=== PATIENT | female | born 1950 | race Caucasian/White ===

== ENCOUNTER → 2016-09-15 | Outpatient (CLI) | payer OTHER ==
[~2016-09-15] MED LIST: ASTRPOW4; CHOL50006; CO Q100C9; CURCPOW; ENZYCAP; GARL10CA2; GRAP100C; HAWTCAP; HYZA100T4 PO; KELP150T; LACTCAP8 PO; LANTUS2P; LANTUSP SQ; LOSA50TA2 PO; MELAPOW2; MSM500CA PO; NOVOLOGP2 SQ; NOVOLOGSS; NOVORP2 SQ; OMEGCAP; OXYC1TAB63 PO; [UNRECOGNIZED DRUG - CODE]
--- NOTE | 2016-09-15 14:37 | RADRPT ---
EXAM DATE/TIME: 09/15/2016 00:00 This report includes an Addendum and supersedes previous reports for this exam. [facility] COMPARISON: No previous studies available for comparison. OUTSIDE STUDY REVIEWED: INDICATIONS : CT guided left renal biopsy and cryoablation FINDINGS: Reviewed patient's outside CT. Definite renal mass in the lower pole with a questionable mass in the upper pole. I would recommend MRI with and without gadolinium to further evaluate the upper pole lesion. If this turns out to be a benign, complicated cyst, I would proceed with cryoablation of the lower pole. However, if the upper pole lesion also appears malignant, would consider nephrectomy. RECOMMENDATION: MRI with and without gadolinium to evaluate upper pole lesion in the right kidney. Ap Whitfield MD on September 15, 2016 at 14:33 Board Certified Radiologist. This report was verified electronically. ADDENDUM: Please note under "recommendations", the statement refers to the left kidney as stated in the body of the findings. Ap Whitfield MD on September 22, 2016 at 9:44 Board Certified Radiologist. This report was verified electronically.
== END ==
LOC: HRAD 13:01
PROVIDERS: ATTEND Urology
DX: N28.89 Other specified disorders of kidney and ureter (principal)
CPT/HCPCS: 76140

== ENCOUNTER 2016-10-17 10:02 | Observation (INO) | payer OTHER ==
[~2016-10-17] VITALS: Ht 157.5 cm; Wt 80.0 kg
[~2016-10-17 10:02] MED LIST changes: -ASTRPOW4; -CHOL50006; -CO Q100C9; -CURCPOW; -ENZYCAP; -GARL10CA2; -GRAP100C; -HAWTCAP; -KELP150T; -LACTCAP8 PO; -LANTUS2P; -LOSA50TA2 PO; -MELAPOW2; -MSM500CA PO; -NOVOLOGP2 SQ; -NOVOLOGSS; -OMEGCAP; -OXYC1TAB63 PO; -[UNRECOGNIZED DRUG - CODE]
[2016-10-17 10:31] VITALS: BP 158/82; PULSE 59; RESP 20; TEMP 98.5; O2SAT 94
[2016-10-17] MEDS ORDERED: LOSA50TA2 PO (10:42)
[2016-10-17] MEDS ORDERED: LANTUS2P (10:46)
[2016-10-17] MEDS ORDERED: NOVOLOGSS (10:46)
[2016-10-17] MEDS ORDERED: NOVOLOGP2 SQ (10:46)
[2016-10-17] MEDS ORDERED: HAWTCAP (11:02)
[2016-10-17] MEDS ORDERED: OMEGCAP (11:02)
[2016-10-17] MEDS ORDERED: MSM500CA PO (11:02)
[2016-10-17] MEDS ORDERED: ASTRPOW4 (11:02)
[2016-10-17] MEDS ORDERED: ENZYCAP (11:02)
[2016-10-17] MEDS ORDERED: MELAPOW2 (11:02)
[2016-10-17] MEDS ORDERED: GARL10CA2 (11:02)
[2016-10-17] MEDS ORDERED: LACTCAP8 PO (11:02)
[2016-10-17] MEDS ORDERED: KELP150T (11:02)
[2016-10-17] MEDS ORDERED: CHOL50006 (11:02)
[2016-10-17] MEDS ORDERED: GRAP100C (11:02)
[2016-10-17] MEDS ORDERED: CURCPOW (11:02)
[2016-10-17] MEDS ORDERED: [UNRECOGNIZED DRUG - CODE] (11:02)
[2016-10-17] MEDS ORDERED: CO Q100C9 (11:02)
[2016-10-17] MEDS ORDERED: POVIDONE IODINE 5% (ANTISEPSIS KIT) 4 APPLICATIONS EACH NARE PRN (11:15)
[2016-10-17] MEDS ORDERED: INSULIN HUMAN REGULAR 1,000 UNITS/10 ML VIAL SQ PRN (11:15)
[2016-10-17] MEDS ORDERED: SODIUM CHLORID 0.9% 500 ML IV PRN (11:15)
[2016-10-17] MEDS ORDERED: CHLORHEXIDINE GLUCONATE 2 % 1 PACK (2 CLOTHS) TOPICAL PRN (11:15)
[2016-10-17] MEDS ORDERED: SODIUM CHLOR 0.9% 1000 ML INJ 1,000 ML IV SCH (11:15)
[2016-10-17] MEDS ORDERED: LACTATED RINGER'S 1000 ML IV PRN (11:15)
[2016-10-17] MEDS ORDERED: LEVOFLOXACIN 500 MG PREMIX INJ 100 ML IV SCH (11:15)
[2016-10-17] MEDS ORDERED: METOPROLOL TARTRATE 25 MG TAB PO PRN (11:15)
[2016-10-17 11:51] LABS: BICARBONATE 26.9 MEQ/L (21.0-32.0); POTASSIUM 4.3 MEQ/L (3.5-5.1)
[2016-10-17] MEDS ORDERED: LIDOCAINE 1%/EPINEPHrine 1:100,000 SOLN 20 ML VIAL ONE (12:48)
[2016-10-17] MEDS ORDERED: DO NOT ADM ANY ANTICOAGULANT DRUGS PRN (17:08)
--- NOTE | 2016-10-17 17:11 | PD.RAD ---
Post CT Procedure Prog Note Pre Procedure Diagnosis: (1) Renal mass, right Post Procedure Diagnosis: (1) Renal mass, right Procedure Date: Oct 17, 2016 Supervising Radiologist: Ap Whitfield Proceduralist/Assist: RT Neli(R)(CT) Anesthesia: General Plan of Activity Patient to Unit: PACU Patient Condition: Good See PACS Report for procedural detail/treatment Biopsy Imaging Guidance: CT Side: Right Biopsy Procedure: Kidney Specimen: Core Biopsy Findings: 3.3 cm mass post 3 needle cryo. Ap Whitfield MD Oct 17, 2016 17:11
[2016-10-17] MEDS ORDERED: oxyCODONE/ACETAMINOPHEN 5 MG/325 MG TAB PO PRN (17:15)
[2016-10-17] MEDS ORDERED: LABETALOL HCL 100 MG/20 ML VIAL ONE (17:18)
[2016-10-17] MEDS ORDERED: fentaNYL CITRATE 250 MCG/5 ML AMP ONE (17:26)
[2016-10-17] MEDS ORDERED: *ONDANSETRON 4 MG VIAL PERIprocedural Use ONLY ONE (17:30)
[2016-10-17] MEDS ORDERED: *ENALAPRILAT 1.25 MG/ML VIAL PERIprocedural Use ONLY ONE (17:32)
[2016-10-17] MEDS ORDERED: PROMETHAZINE HCL 25 MG SUPP RECTAL ONE ×2 (17:42→19:00)
--- NOTE | 2016-10-17 18:11 | PD.CONS ---
HPI Service [facility] Consult Requested By Dr. Whitfield Reason for Consult medical management Primary Care Physician Jaren Jenkins MD Diagnoses: History of Present Illness 66-year-old female past medical history type 2 diabetes insulin-dependent, coronary disease, hypertension, and recent discovery of a right renal mass who presented for renal biopsy and cryoablation today by radiologist. [facility] consulted for medical management. Patient seen to [facility] and the PACU. Patient complaining of abdominal discomfort and nausea/vomiting. Patient had an episode emesis during the interview which was yellow in color. Blood pressure was also elevated with a systolic blood pressure 190s. Patient stated that she only takes a half a tablet of her blood pressure which she took today. Otherwise she has no other complaints. Review of Systems Constitutional: DENIES: Diaphoretic episodes, Fatigue, Fever, Weight gain, Weight loss, Chills, Dizziness, Change in appetite, Night Sweats Endocrine: DENIES: Abnorml menstrual pattern, Heat/cold intolerance, Polydipsia , Polyuria, Polyphagia Eyes: DENIES: Blurred vision, Diplopia, Eye inflammation, Eye pain, Vision loss , Photosensitivity, Double Vision Ears, nose, mouth, throat: DENIES: Tinnitus, Hearing loss, Vertigo, Nasal discharge, Oral lesions, Throat pain, Hoarseness, Ear Pain, Running Nose, Epistaxis, Sinus Pain, Toothache, Odynophagia Respiratory: DENIES: Apneas, Cough, Snoring, Wheezing, Hemoptysis, Sputum production, Shortness of breath Cardiovascular: DENIES: Chest pain, Palpitations, Syncope, Dyspnea on Exertion , PND, Lower Extremity Edema, Orthopnea, Claudication Gastrointestinal: COMPLAINS OF: Abdominal pain, Nausea, Vomiting, DENIES: Black stools, Bloody stools, Constipation, Diarrhea, Difficulty Swallowing, Anorexia Genitourinary: DENIES: Abnormal vaginal bleeding, Dysmenorrhea, Dyspareunia, Sexual dysfunction, Urinary frequency, Urinary incontinence, Urgency, Hematuria , Dysuria, Nocturia, Vaginal discharge Musculoskeletal: DENIES: Joint pain, Muscle aches, Stiffness, Joint Swelling, Back pain, Neck pain Integumentary: DENIES: Abnormal pigmentation, Pruritus, Rash, Nail changes, Breast masses, Breast skin changes, Nipple discharge Hematologic/lymphatic: DENIES: Bruising, Lymphadenopathy Immunologic/allergic: DENIES: Eczema, Urticaria Neurologic: DENIES: Abnormal gait, Headache, Localized weakness, Paresthesias, Seizures, Speech Problems, Tremor, Poor Balance Psychiatric: DENIES: Anxiety, Confusion, Mood changes, Depression, Hallucinations, Agitation, Suicidal Ideation, Homicidal Ideation, Delusions Past Family Social History Allergies: Coded Allergies: Darvon (Verified Allergy, Mild, NIGHTMARES, 10/04/10) Keflex (Verified Allergy, Mild, RASH, 10/04/10) Past Medical History Osteoarthritis, type 2 diabetes insulin-dependent, coronary disease, hypertension Past Surgical History Cholecystectomy, hysterectomy with oophorectomy, bladder neck suspension Reported Medications Reported Meds & Active Scripts Active Reported Astragalus Root (Tragacanth) 1 Pow Pow Melatonin (Melatonin (Bulk)) 1 Pow Pow Vitamin D (Cholecalciferol) 5,000 Unit Tab Cardio [place] Benefits/Vit 667-250 mg-Unit ([place]-3 Fatty Acids-Cholecalci) 1 Cap Cap Garlic 10 Mg Cap Immune Enhance (Nutritional Supplements) 1 Tab Tab Kelp (Iodine (Kelp)) 150 Mcg Tab Enzyme Digest (Digestive Enzymes) 1 Cap Cap TID [place] ([place]) 550 Mg Cap Grape Seed Extract (Grape Seed) 100 Mg Cap Curcumin (Turmeric (Curcuma Longa) (Bulk) 1 Pow Pow Msm (Methylsulfonylmethane) 500 Mg Cap 500 Mg PO BID Probiotic (Lactobacillus Acidophilus) 1 Cap Cap 2 Cap PO DAILY Co Q 10 (Coenzyme Q10 (Ubidecarenone)) 100 Mg Cap Novolog Inj (Insulin Aspart) 1,000 Unit/10 Ml Vial 0 SQ DIRECTED Sliding Scale as directed. Novolog Inj (Insulin Aspart) 100 Unit/Ml Inj Lantus Inj (Insulin Glargine) 100 Unit/Ml Inj 35 Losartan-Hydrochlorothiazide 50-12.5 Mg Tab 0.5 Tab PO DAILY Active Ordered Medications Current Medications Lactated Ringer's 1,000 ml @ 30 mls/hr Q24H PRN IV SEE LABEL COMMENTS; Start at 11:15; Stop 10/20/16 at 11:14 Sodium Chloride (NS 500 ml Inj) 500 ml @ 30 mls/hr [id number] PRN IV SEE LABEL COMMENTS; Start 10/17/16 at 11:15; Stop 10/20/16 at 11:14 Metoprolol Tartrate (Lopressor) 25 mg ROLLER LEVELER OPERATOR PRN PO SEE LABEL COMMENTS; Start 10/17/16 at 11:15; Stop 10/20/16 at 11:14 Povidone Iodine (Betadine 5% Antisepsis Kit) 1 applic ROLLER LEVELER OPERATOR PRN EACH NARE SEE LABEL COMMENTS; Start 10/17/16 at 11:15; Stop 10/20/16 at 11:14 Chlorhexidine Gluconate (Chlorhexidine 2% Cloth) 3 pack ROLLER LEVELER OPERATOR PRN TOPICAL SEE LABEL COMMENTS; Start 10/17/16 at 11:15; Stop 10/20/16 at 11:14 Insulin Human Regular See Protocol Table ... ROLLER LEVELER OPERATOR PRN SQ SEE PROTOCOL TABLE ; Start 10/17/16 at 11:15; Stop 10/20/16 at 11:14 Sodium Chloride 1,000 ml @ 30 mls/hr Q24H IV ; Start 10/17/16 at 11:15; Stop at 11:14 Levofloxacin/ Dextrose (Levaquin 500 Mg Premix Inj) 100 ml @ 100 mls/hr ROLLER LEVELER OPERATOR IV ; Start 10/17/16 at 11:15; Stop 10/20/16 at 11:14 Lidocaine/ Epinephrine (Xylocaine-Epi 1%-1:100,000 Inj) 20 ml STK-MED ONCE .ROUTE ; Start 10/17/16 at 12:48; Stop 10/17/16 at 12:49; Status DC Oxycodone/ Acetaminophen (Percocet 5-325 Mg) 1 tab Q4H PRN PO PAIN SCALE 1 TO 10; Start 10/17/16 at 17:15 Labetalol HCl (Trandate Inj) 100 mg STK-MED ONCE .ROUTE ; Start 10/17/16 at 17: 18; Stop 10/17/16 at 17:19; Status DC Fentanyl Citrate (fentaNYL INJ) 250 mcg STK-MED ONCE .ROUTE ; Start 10/17/16 at 17:26; Stop 10/17/16 at 17:27; Status DC Ondansetron HCl (*ZOFRAN INJ PERIprocedural ONLY) 4 mg STK-MED ONCE .ROUTE Last administered on 10/17/16t 17:30; Start 10/17/16 at 17:30; Stop 10/17/16 at 17:31; Status DC Enalaprilat (*VASOTEC INJ PERIprocedural Use ONLY) 1.25 mg STK-MED ONCE .ROUTE Last administered on 10/17/16t 17:32; Start 10/17/16 at 17:32; Stop 10/17/16 at 17:33; Status DC Promethazine HCl (Phenergan Supp) 25 mg STK-MED ONCE RECTAL ; Start 10/17/16 at 17:42; Stop 10/17/16 at 17:43; Status DC Miscellaneous Information ALL NURSING DEPARTME... UNSCH PRN .XX SEE LABEL COMMENTS; Start 10/17/16 at 17:08; Stop 10/18/16 at 17:07 Promethazine HCl (Phenergan Supp) 25 mg ONCE ONCE RECTAL ; Start 10/17/16 at 19 :00; Stop 10/17/16 at 19:01 Family History Multiple family members with diabetes and coronary disease. Social History Patient was on home. Denies tobacco use or alcohol use. Physical Exam Vital Signs Vital Signs Date Time Temp Pulse Resp B/P Pulse Ox O2 Delivery O2 Flow Rate FiO2 10/17/16 11:28 94 Room Air 10/17/16 10:31 98.5 59 20 158/82 94 Physical Exam GENERAL: This is a well-nourished, well-developed patient, in no apparent distress. SKIN: No rashes, ecchymoses or lesions. Cool and dry. HEAD: Atraumatic. Normocephalic. No temporal or scalp tenderness. EYES: Pupils equal round and reactive. Extraocular motions intact. No scleral icterus. No injection or drainage. ENT: Nose without bleeding, purulent drainage or septal hematoma. Throat without erythema, tonsillar hypertrophy or exudate. Uvula midline. Airway patent. NECK: Trachea midline. No JVD or lymphadenopathy. Supple, nontender, no meningeal signs. CARDIOVASCULAR: Regular rate and rhythm without murmurs, gallops, or rubs. RESPIRATORY: Clear to auscultation. Breath sounds equal bilaterally. No wheezes , rales, or rhonchi. GASTROINTESTINAL: Abdomen soft, mild tenderness to palpation in the left lower quadrant, nondistended. No hepato-splenomegaly, or palpable masses. No guarding. hypoactive bowel sounds MUSCULOSKELETAL: Extremities without clubbing, cyanosis, or edema. No joint tenderness, effusion, or edema noted. No calf tenderness. Negative Homans sign bilaterally. NEUROLOGICAL: Awake and alert. Cranial nerves II through XII intact. Motor and sensory grossly within normal limits. Five out of 5 muscle strength in all muscle groups. Normal speech. Laboratory Laboratory Tests Test 10/17/16 11:15 Sodium Level 138 Potassium Level 4.3 Chloride Level 100 Carbon Dioxide Level 26.9 Anion Gap 11 Blood Urea Nitrogen 28 Creatinine 1.36 Estimat Glomerular Filtration 39 Rate Random Glucose 213 Calcium Level 9.6 Result Diagram: 10/17/16 1115 Assessment and Plan Assessment and Plan 66-year-old female who presented with a right renal mass Right renal mass -Status post biopsy and cryoablation by CT. -Management per CT Radiologist. -Continue to monitor clinically and for any signs of bleeding. Emesis -Most likely secondary to anesthesia. -Patient was given a dose of Zofran. Will try Phenergan. -Patient is currently on IV fluids. -Continue to monitor clinically. Uncontrolled hypertension -Most likely secondary to postsurgical. -Monitor over telemetry. -We'll give labetalol when necessary. -Restart home medication. coronary disease, type 2 diabetes -Per medical record stated that patient has coronary disease but is not on aspirin. Will continue to hold if patient is on aspirin due to increased risks of bleeding. Aspirin most likely held secondary to procedure. -Since patient does have emesis will only continue with insulin sliding scale. -Once emesis resolve we'll consider restarting her home medication. Chronic kidney disease stage III -Patient is on ARB. -Avoid nephrotoxins.. DVT prophylaxis -SCDs. Swathi Calero MD Oct 17, 2016 18:11
[2016-10-17] MEDS ORDERED: hydrALAZINE HCL 20 MG/ML VIAL IV PUSH PRN (18:30)
[2016-10-17] MEDS ORDERED: LABETALOL HCL 100 MG/20 ML VIAL IV PUSH PRN (18:30)
[2016-10-17] MEDS ORDERED: IODIXANOL 320 MG/ML 10 ML VIAL (for Rad CT) IV ONE (19:30)
[2016-10-17 21:07] VITALS: BP 151/72; PULSE 70; RESP 18; TEMP 96.1; O2SAT 97
[2016-10-17 23:49] VITALS: BP 145/70; PULSE 80; RESP 18; TEMP 97.4; O2SAT 96
[2016-10-18 07:53] VITALS: BP 140/71; PULSE 76; RESP 17; TEMP 98.1; O2SAT 96
[2016-10-18] MEDS ORDERED: OXYC1TAB63 PO (08:36)
[2016-10-18] MEDS ORDERED: LACTOBACILLUS ACIDOPHILUS TAB PO SCH (09:00)
[2016-10-18] MEDS ORDERED: LOSARTAN HYDROCHLOROTHIAZIDE PO SCH (09:00)
--- NOTE | 2016-10-18 11:16 | RADRPT ---
EXAM DATE/TIME: 10/17/2016 14:59 [facility] COMPARISON: No previous studies available for comparison. INDICATIONS : Left renal mass. CONTRAST: 50 cc Visipaque (iodixanol) BIOPSY SITE: Left renal Anesthesia and pain control was provided by the Anesthesia department. DEVICE(S): 1.) 18 gauge Temno core biopsy needle MEDICAL HISTORY : Arthritis. Cardiovascular disease. Hypertension. diabetes SURGICAL HISTORY : Hysterectomy. Cholecystectomy. Bladder neck suspension,oophorectomy ENCOUNTER: Initial ACUITY: 1 day PAIN SCORE: 0/10 LOCATION: Left renal A total of one core specimen(s) were obtained and sent to the laboratory for pathologic evaluation. S tudy was done in conjunction with cryoablation. PROCEDURE: 1. CT guided renalLeft biopsy. Prior to the procedure informed consent was obtained. Any appropriate prior imaging studies were rev iewed. Using automated exposure control and adjustment of the mA and/or kV according to patient size, radiat ion dose was kept as low as reasonably achievable to obtain optimal diagnostic quality images. The site was prepped in a sterile fashion. Full sterile technique was used, including cap, mask, brooklyn rile gloves and gown and a large sterile sheet. Hand hygiene and 2% chlorhexidine and/or betadine/al cohol prep was utilized per protocol for cutaneous antisepsis. The skin and subcutaneous tissues wer e infiltrated with local anesthetic solution. With CT guidance the previously identified target was localized. Biopsy was performed using the presc ribed needle as above. Adequate hemostasis was obtained with compression at the puncture site. Follow-up CT scan reveals no hemorrhage. The patient tolerated the procedure well and there were no complications. The patient was returned to the Radiology Outpatient Unit in stable condition. CONCLUSION: Uncomplicated CT guided biopsy. Ap Whitfield MD on October 18, 2016 at 11:12 Board Certified Radiologist. This report was verified electronically.
--- NOTE | 2016-10-18 11:18 | RADRPT ---
EXAM DATE/TIME: 10/17/2016 14:59 INDICATIONS : Left renal mass. Anesthesia and pain control was provided by the Anesthesia department. DEVICE(S): 1.) Cryoablation probe x3 MEDICAL HISTORY : Arthritis. Cardiovascular disease. Hypertension. Diabetes,kidney stone SURGICAL HISTORY : Hysterectomy. Cholecystectomy. oophorectomy,bladder neck ENCOUNTER: Initial ACUITY: 1 day PAIN SCORE: 0/10 LOCATION: left renal PROCEDURE : 1. CT guided cryoablation. Under sterile conditions and using aseptic technique with CT guidance the mass was localized and sati sfactory approach was taken to access the lesion. Using automated exposure control and adjustment of the mA and/or kV according to patient size, radiation dose was kept as low as reasonably achievable to obtain optimal diagnostic quality images. Tangible Play Cryoprobes were employed using percutaneous technique employing the prescribed probes. Needle placement was also assisted with the SageFire guidance system, A freeze-thaw, freeze-thaw techn ique was employed and serial imaging demonstrated an ice ball encompassing the entire lesion. Post p rocedure images demonstrate expected postoperative changes without evidence of hematoma. There was so me filling defects within the collecting system which probably represented thrombus in the collecting system. This was nonobstructing, however CONCLUSION: Uncomplicated cryoablation as above. Ap Whitfield MD on October 18, 2016 at 11:14 Board Certified Radiologist. This report was verified electronically.
[2016-10-18 11:35] VITALS: O2SAT 97
[2016-10-18 11:58] VITALS: BP 142/78; PULSE 81; RESP 17; TEMP 98.6; O2SAT 97
[2016-10-18 13:01] LABS: HEMATOCRIT 34.6 % (35.0-46.0); MEAN CELL VOLUME 84.1 FL (80.0-100.0); MEAN CORPUSCULAR HEMOGLOBIN 28.7 PG (27.0-34.0); MEAN CORPUSCULAR HGB CONC 34.1 % (32.0-36.0); PLATELET COUNT 184 TH/MM3 (150-450); RED BLOOD COUNT 4.11 MIL/MM3 (4.00-5.30); RED CELL DISTRIBUTION WIDTH 14.7 % (11.6-17.2); REVIEW FLAG FINAL; WHITE BLOOD COUNT 10.5 TH/MM3 (4.0-11.0)
[2016-10-18 13:18] LABS: BICARBONATE 27.3 MEQ/L (21.0-32.0); POTASSIUM 3.6 MEQ/L (3.5-5.1)
--- NOTE | 2016-10-18 13:49 | HHI.DCPOC ---
Discharge Care Plan Diagnosis: (1) Renal mass, right Goals to Promote Your Health * To prevent worsening of your condition and complications * To maintain your health at the optimal level Directions to Meet Your Goals Take your medications as prescribed Follow your dietary instruction Follow activity as directed Keep your appointments as scheduled Take your immunizations and boosters as scheduled If your symptoms worsen call your PCP, if no PCP go to Urgent Care Center or Emergency Room Smoking is Dangerous to Your Health. Avoid second hand smoke Call the 24-hour hour crisis hotline for domestic abuse at Swathi Calero MD Oct 18, 2016 13:49
--- NOTE | 2016-10-18 13:49 | HHI.DS ---
Discharge Summary Admission Date Oct 17, 2016 at 20:45 Discharge Date: Oct 18, 2016 Admitting Diagnosis (1) Renal mass, right ICD Code: N28.89 Diagnosis: Principal (2) Renal insufficiency ICD Code: N28.9 Diagnosis: Secondary Procedures See hospital course. Brief History - From Admission 66-year-old female past medical history type 2 diabetes insulin-dependent, coronary disease, hypertension, and recent discovery of a right renal mass who presented for renal biopsy and cryoablation today by radiologist. [facility] consulted for medical management. Patient seen to [facility] and the PACU. Patient complaining of abdominal discomfort and nausea/vomiting. Patient had an episode emesis during the interview which was yellow in color. Blood pressure was also elevated with a systolic blood pressure 190s. Patient stated that she only takes a half a tablet of her blood pressure which she took today. Otherwise she has no other complaints. CBC/BMP: 10/18/16 1240 10/18/16 1240 Significant Findings Laboratory Tests Test 10/17/16 10/18/16 11:15 12:40 Blood Urea Nitrogen 28 MG/DL (7-18) 33 MG/DL (7-18) Creatinine 1.36 MG/DL 1.62 MG/DL (0.50-1.00) (0.50-1.00) Estimat Glomerular Filtration 39 ML/MIN (>89) 32 ML/MIN (>89) Rate Random Glucose 213 MG/DL 138 MG/DL (74-106) (74-106) Hematocrit 34.6 % (35.0-46.0) Sodium Level 135 MEQ/L (136-145) Imaging Last Impressions Renal Biopsy CT 10/17/16 0000 Signed Impressions: Service Date/Time: Monday, October 17, 2016 14:59 - CONCLUSION: Uncomplicated CT guided biopsy. Ap Whitfield MD CT Guided Tissue Ablation 10/17/16 0000 Signed Impressions: Service Date/Time: Monday, October 17, 2016 14:59 - CONCLUSION: Uncomplicated cryoablation as above. Ap Whitfield MD PE at Discharge GENERAL: in NAD NECK: Supple, trachea midline. No JVD or lymphadenopathy. CARDIOVASCULAR: Regular rate and rhythm without murmurs, gallops, or rubs. RESPIRATORY: Breath sounds equal bilaterally. No accessory muscle use. GASTROINTESTINAL: Abdomen soft, non-tender, nondistended. MUSCULOSKELETAL: No cyanosis, or edema. BACK: Nontender without obvious deformity. No CVA tenderness. Pt update on day of discharge Follow-up after cryotherapy and renal biopsy Patient stated that she had one episode of blood clot in her urine but it has cleared up. Patient stated that she had one episode of sharp pain last night but that has resolved. She denies any pain. Hospital Course 66-year-old female who presented with a right renal mass Right renal mass -Status post biopsy and cryoablation by CT. -Management per CT Radiologist. -Continue to monitor clinically and for any signs of bleeding. Emesis -Most likely secondary to anesthesia. -Patient was given a dose of Zofran. Will try Phenergan. -Patient is currently on IV fluids. -Continue to monitor clinically. Uncontrolled hypertension -Most likely secondary to postsurgical. -Monitor over telemetry. -We'll give labetalol when necessary. -Restart home medication. coronary disease, type 2 diabetes -Per medical record stated that patient has coronary disease but is not on aspirin. Will continue to hold if patient is on aspirin due to increased risks of bleeding. Aspirin most likely held secondary to procedure. -Since patient does have emesis will only continue with insulin sliding scale. -Once emesis resolve we'll consider restarting her home medication. Chronic kidney disease stage III -Patient is on ARB. -Avoid nephrotoxins.. DVT prophylaxis -SCDs. Pt Condition on Discharge: Good Discharge Disposition: Discharge Home Discharge Time: <= 30 minutes Discharge Instructions DIET: Follow Instructions for: Heart Healthy Diet Activities you can perform: Regular-No Restrictions Follow up Referrals: PCP Follow-up - 3-5 Days New Orders: BASIC METABOLIC PROF - 10/20/16 New Medications: Oxycodone-Acetaminophen (Oxycodone-Acetaminophen) 5-325 mg Tab 1 TAB PO Q4H PRN PAIN SCALE 1 TO 10 #20 Ref 0 TAB Continued Medications: Cholecalciferol (Vitamin D) 5,000 Unit Tab Coenzyme Q10 (Ubidecarenone) (Co Q 10) 100 Mg Cap Digestive Enzymes (Enzyme Digest) 1 Cap Cap TID Garlic (Garlic) 10 Mg Cap Grape Seed (Grape Seed Extract) 100 Mg Cap [place] ([place]) 550 Mg Cap Insulin Aspart Inj (Novolog Inj) 100 Unit/Ml Inj Insulin Aspart Inj (Novolog Inj) 1,000 Unit/10 Ml Vial 0 SQ DIRECTED Sliding Scale as directed. Blood Sugar Management #10 Ref 0 ML Insulin Glargine Inj (Lantus Inj) 100 Unit/Ml Inj 35 Iodine (Kelp) (Kelp) 150 Mcg Tab Lactobacillus Acidophilus (Probiotic) 1 Cap Cap 2 CAP PO DAILY Nutritional Supplement #180 Ref 0 CAP Losartan-Hydrochlorothiazide (Losartan-Hydrochlorothiazide) 50-12.5 Mg Tab 0.5 TAB PO DAILY Blood Pressure Management #30 Ref 0 TAB Melatonin (Bulk) (Melatonin) 1 Pow Pow Methylsulfonylmethane (Msm) 500 Mg Cap 500 MG PO BID Ref 0 CAP Nutritional Supplements (Immune Enhance) 1 Tab Tab [place]-3 Fatty Acids-Cholecalci (Cardio [place] Benefits/Vit 667-250 mg-Unit) 1 Cap Cap Tragacanth (Astragalus Root) 1 Pow Pow Turmeric (Curcuma Longa) (Bulk (Curcumin) 1 Pow Pow Swathi Calero MD Oct 18, 2016 13:49
--- NOTE | 2016-10-18 13:52 | PD.RAD ---
Radiology Note Went to patient's room @13:30. She described some left flank pain last night with some dark red blood and occasional clots. Explained that this was expected and should clear over the next few days. Patient states that the urine has almost completely cleared and left flank pain is resolving. Has F/U in [facility] in ~10 days. Bx results pending. OK to D/C from IR standpoint. Ap Whitfield MD Oct 18, 2016 13:52
--- NOTE | 2016-10-18 14:45 | EKG ---
Date Performed: 10/17/2016 Time Performed: 12:09:49 PTAGE: 66 years EKG: SINUS BRADYCARDIA Late transition BORDERLINE LEFT AXIS DEVIATION NONSPECIFIC T-WAVE ABNORMA LITY Compared to the previous tracing patient now has late transition which may be secondary to lead placement or an interval IL Clinical correlation requested ABNORMAL ECG PREVIOUS TRACING : 10/05/2010 04.12 DOCTOR: Jessy Adhikari Interpretating Date/Time 10/18/2016 14:45:11
== END 2016-10-18 14:22 | disposition home or self-care (01) ==
LOC: HROP 10:02 → HRIP 10:40 → HROP 20:44 → N07B 20:45
PROVIDERS: ADMIT Family Medicine; ATTEND Family Medicine
DX: N28.89 Other specified disorders of kidney and ureter (principal); E11.22 Type 2 diabetes mellitus with diabetic chronic kidney disease; Z79.4 Long term (current) use of insulin; N18.3 Chronic kidney disease, stage 3 (moderate); I12.9 Hypertensive chronic kidney disease with stage 1 through stage 4 chronic kidney disease, or unspecified chronic kidney disease; R11.2 Nausea with vomiting, unspecified; Z79.899 Other long term (current) drug therapy; R00.1 Bradycardia, unspecified; R94.31 Abnormal electrocardiogram [ECG] [EKG]; I25.10 Atherosclerotic heart disease of native coronary artery without angina pectoris
CPT/HCPCS: 50200; 50593; 77012; 77013; 80048; 85027; 88305; 93005; C2618; G0378; J2405; J3010; Q9967

== ENCOUNTER 2016-10-27 13:56 | Day surgery (SDC) | payer OTHER ==
[~2016-10-27 13:56] MED LIST changes: +ASTRPOW4; +CHOL50006; +CO Q100C9; +CURCPOW; +ENZYCAP; +GARL10CA2; +GRAP100C; +HAWTCAP; -HYZA100T4 PO; +KELP150T; +LACTCAP8 PO; +LANTUS2P; -LANTUSP SQ; +LOSA50TA2 PO; +MELAPOW2; +MSM500CA PO; +NOVOLOGP2 SQ; +NOVOLOGSS; -NOVORP2 SQ; +OMEGCAP; +OXYC1TAB63 PO; +[UNRECOGNIZED DRUG - CODE]
[2016-10-27 14:15] VITALS: BP 145/71; PULSE 65; RESP 18; TEMP 98.4; O2SAT 97
--- NOTE | 2016-10-27 15:23 | RADRPT ---
EXAM DATE/TIME: 10/27/2016 00:00 [facility] COMPARISON : No previous studies available for comparison. INDICATIONS : FOLLOW UP RENAL CRYOABLATION OBJECTIVE: Temperature: 98.4 Heart Rate: 65 Blood Pressure: 145/71 Respiratory: 18 Oximetry: 97 PNEUMONIA VACCINE: HISTORY OF PRESENT ILLNESS: The patient is a 66-year-old who underwent CT-guided cryoablation of left renal mass 10/18/16. The pat ient returned for followup. ALLERGIES: 1. DARVON 2. KEFLEX IMAGING STUDIES: The patient's imaging from the procedure was reviewed. There was good placement of both a biopsy need le and the ablation needle. There appears to be complete ablation of the mass. The pathology returned fibrotic adipose tissue. ASSESSMENT: Successful cryoablation. The pathology returned fibroadipose tissue however, the patient was advised this lesion remains suspicious for malignancy and a biopsy may have captured tissue along the margin of the lesion despite the successful placement of the needle within the lesion on the CT. She was adv ised to continue follow up with urologist for CT imaging to ensure the entire lesion is ablated. The patient has no current complaints related to the procedure at this time. TIME SPENT: 30 minutes. TECH NOTE: INCISION WELL HEALED. NO REDNESS OR DRAINAGE. PT WITHOUT COMPLAINTS. DR. TANG IN TO SEE PATIENT TO A NSWER HER QUESTIONS ODILON MANN MR#:[id number] :66 Exam Dt/Desc: October 27, 2016INVASIVE RADI OLOGY CONSULT Yuriy Tang MD on October 27, 2016 at 15:17 Board Certified Radiologist. This report was verified electronically.
== END 2016-10-27 14:45 | disposition home or self-care (01) ==
LOC: HRAD 13:56 → HRIP 14:01 → HRAD 14:45
PROVIDERS: ATTEND Radiology Body Imaging
DX: N28.89 Other specified disorders of kidney and ureter (principal)